=== PATIENT | female | born 1990 | race Caucasian/White ===

== ENCOUNTER 2020-02-10 00:07 | Emergency (ER) | payer SELFPAY ==
[2020-02-10] MEDS ORDERED: Bupivacaine 0.25%/EPINEPHrine 1:200,000 10 ML SDV INJECT ONE ×2 (00:32→00:33)
[2020-02-10] MEDS ORDERED: Lidocaine 1% with EPINEPHrine 1:100,000 20 ML MDV ONE (00:32)
--- NOTE | 2020-02-10 00:32 | EDM.PDOC ---
ED HPI GENERAL MEDICAL PROBLEM - General Chief Complaint: General Stated Complaint: BROKEN TOOTH, PAIN, HEADACHE Time Seen by Provider: 02/10/20 00:23 Source of Information: Reports: Patient History Limitations: Reports: No Limitations - History of Present Illness INITIAL COMMENTS - FREE TEXT/NARRATIVE: Is a 29-year-old female is complaining having left upper dental pain is been going on for several days but is gotten worse. Patient states her tooth is been bleeding recently. SHe has had trouble with this in the past. Denies any fever or chills. She states pain is getting worse and is severe in intensity and is worse with eating. Pain does radiate to her ear. She denies any change in her hearing. SHe is taking nothing for current pain symptoms with states she will be able to get in and see a dentist. Duration: Constant, Intermittent Location: Reports: Face Quality: Reports: Ache Severity: Severe Improves with: Reports: None Worsens with: Reports: Eating Associated Symptoms: Reports: No Other Symptoms dental area Pain Score (Numeric/FACES): 8 - Related Data Allergies Allergy/AdvReac Type Severity Reaction Status Date / Time No Known Allergies Allergy Verified 02/10/20 00:23 Home Meds: Home Meds . [No Known Home Meds] 02/10/20 [History] ED ROS GENERAL - Review of Systems Review Of Systems: Comprehensive ROS is negative, except as noted in HPI. ED EXAM, GENERAL - Physical Exam Exam: See Below Exam Limited By: No Limitations General Appearance: Alert, WD/WN Throat/Mouth: No: Normal Inspection, Normal Teeth (Tooth #15 dental carry which is a source of her pain. I see no indication of facial abscess.) Head: Atraumatic. No: Facial Swelling Neck: Normal Inspection, Supple Respiratory/Chest: No Respiratory Distress Extremities: Normal Inspection, Normal Range of Motion Neurological: Alert, Oriented Psychiatric: Normal Affect Skin Exam: Warm, Dry Lymphatic: No Adenopathy Course - Vital Signs Text/Narrative:: Patient received a dental block using 0.5% bupivacaine with epinephrine. I am starting her on clindamycin 300 mg 4 times daily for 10-day course. Patient was given 10 Skyforest. She is advised to follow-up with her dentist as soon as possible. She can return to emergency department if she is doing worse. Ibuprofen with meals. Last Recorded V/S: Last Vital Signs Temp 36 C L 02/10/20 00:20 Pulse 96 02/10/20 00:20 Resp 18 02/10/20 00:20 BP 104/78 02/10/20 00:20 Pulse Ox 98 02/10/20 00:20 - Orders/Labs/Meds Meds: Medications Discontinued Medications Generic Name Dose Route Start Last Admin Trade Name Chevy PRN Reason Stop Dose Admin Bupivacaine HCl 10 ml 02/10/20 00:46 Sensorcaine-Mpf 0.5% INJECT 02/10/20 00:47 ONETIME ONE Bupivacaine HCl/Epinephrine Bitart 10 ml 02/10/20 00:32 02/10/20 00:56 Marcaine 0.25%/Epinephrine 1:200,000 INJECT 02/10/20 00:33 Not Given ONETIME ONE Bupivacaine HCl/Epinephrine Bitart 10 ml 02/10/20 00:33 Marcaine 0.25%/Epinephrine 1:200,000 INJECT 02/10/20 00:35 ONETIME ONE Clindamycin HCl 300 mg 02/10/20 00:34 Cleocin PO 02/10/20 00:35 ONETIME ONE Lidocaine/Epinephrine Confirm 02/10/20 00:32 02/10/20 00:36 Xylocaine 1% With Epinephrine 1:100,000 Administered 02/10/20 00:33 Not Given Dose 20 ml .ROUTE .STK-MED ONE Bupivacaine 0.5%/ 0 each 02/10/20 01:00 Epinephrine 1:200, BUCCAL 02/10/20 01:01 000 30 Ml ONETIME ONE Departure - Departure Time of Disposition: 01:17 Disposition: Home, Self-Care 01 Condition: Good Clinical Impression: Infected dental carries - Discharge Information Instructions: Dental Abscess Referrals: PCP,None [Primary Care Provider] - Forms: ED Department Discharge Additional Instructions: The following information is given to patients seen in the emergency department who are being discharged to home. This information is to outline your options for follow-up care. We provide all patients seen in our emergency department with a follow-up referral. The need for follow-up, as well as the timing and circumstances, are variable depending upon the specifics of your emergency department visit. If you don't have a primary care physician on staff, we will provide you with a referral. We always advise you to contact your personal physician following an emergency department visit to inform them of the circumstance of the visit and for follow-up with them and/or the need for any referrals to a consulting specialist. The emergency department will also refer you to a specialist when appropriate. This referral assures that you have the opportunity for follow-up care with a specialist. All of these measure are taken in an effort to provide you with optimal care, which includes your follow-up. Under all circumstances we always encourage you to contact your private physician who remains a resource for coordinating your care. When calling for follow-up care, please make the office aware that this follow-up is from your recent emergency room visit. If for any reason you are refused follow-up, please contact the [facility] Emergency Department at and asked to speak to the emergency department charge nurse. Care Plan Goals: Follow-up with your dentist as soon as possible to have tooth extracted. Ibuprofen with meals. Antibiotic as prescribed. Skyforest if needed. Return to ER symptoms are worse. Sepsis Event Note - Focused Exam Vital Signs: Vital Signs Temp Pulse Resp BP Pulse Ox 02/10/20 00:20 36 C L 96 18 104/78 98 Date Exam was Performed: 02/10/20 Time Exam was Performed: 01:16
[2020-02-10] MEDS ORDERED: Clindamycin HCl 150 MG Cap PO ONE (00:34)
[2020-02-10] MEDS ORDERED: Bupivacaine 0.5% 10 ML SDV INJECT ONE (00:46)
[2020-02-10] MEDS ORDERED: EPINEPHRINE BUCCAL ONE (01:00)
[2020-02-10] MEDS ORDERED: BUPIVACAINE BUCCAL ONE (01:00)
== END 2020-02-10 01:30 | disposition home or self-care (01) ==
LOC: MW.ED 00:07
DX: K02.9 Dental caries, unspecified (principal)
CPT/HCPCS: 64400; 99282; J3490